=== PATIENT | female | born 1930 | race Caucasian/White ===

== ENCOUNTER 2017-01-07 16:17 | Emergency (ER) | payer MEDICARE ==
--- NOTE | 2017-01-07 17:28 | PD ---
HPI Chief Complaint: Nosebleed Time Seen by Provider: 17:23 Travel History International Travel<30 days: No Contact w/Intl Traveler<30days: No Traveled to known affect area: No History of Present Illness HPI 86 year old female presents to ED for evaluation of a bloody nose that has since resolved. Denies trauma. States she picked her nose and it began to bleed , Has history of dementia. Son has called and reports this "happens all the time " that pt does not need to be in ED. Pt states she would like to go home. No other symptoms to report. Denies being sad. No SI/HI. PFSH Past Medical History Dementia: Yes Social History Alcohol Use: No Tobacco Use: No Substance Use: No Review of Systems Except as stated in HPI: all other systems reviewed are Neg Physical Exam Narrative GENERAL: Well nourished female pt in no acute distress SKIN: Warm and dry. HEAD: Normocephalic. EYES: No scleral icterus. No injection or drainage. ENT. Nose with dry blood . Not actively bleeding. NECK: Supple, trachea midline. No JVD or lymphadenopathy. CARDIOVASCULAR: Regular rate and rhythm without murmurs, gallops, or rubs. RESPIRATORY: No accessory muscle use. GASTROINTESTINAL: Abdomen soft, non-tender, nondistended. MUSCULOSKELETAL: No cyanosis, or edema. MDM Medical Decision Making Medical Screen Exam Complete: Yes Emergency Medical Condition: Yes Medical Record Reviewed: Yes Differential Diagnosis epistaxis resolved vs epistaxis vs trauma vs allergies Narrative Course 86 year old female presents to ED for evaluation of nose bleed that has resolved. Appears well. Son is here now and states his mother does this frequently because she panics. He is willing to take her back home. She appears well. Is not actively bleeding. No signs of trauma Diagnosis Primary Impression: Epistaxis, recurrent Referrals: Ear / Nose / Throat Specialist Primary Care Physician Patient Instructions: Epistaxis (DC), General Instructions Additional Instructions: Avoid picking or scratching your nose Follow up with pcp return to ED with acute worsening of symptoms Med/Other Pt SpecificInfo: No Change to Meds Disposition: 01 DISCHARGE HOME Condition: Stable UshaBasilia ARIZA Jan 07, 2017 17:28
[2017-01-07 17:40] VITALS: BP 183/81; PULSE 87; RESP 18; O2SAT 100
== END 2017-01-07 17:42 | disposition home or self-care (01) ==
LOC: NED 16:17
DX: R04.0 Epistaxis (principal)
CPT/HCPCS: 99283